=== PATIENT | female | born 1950 | race Caucasian/White ===

== ENCOUNTER 2017-06-15 20:25 | Emergency (ER) | payer MEDICARE, BC ==
[~2017-06-15] VITALS: Ht 167.6 cm; Wt 68.0 kg
[~2017-06-15 20:25] MED LIST: AFRIN NASAL SPRAY INH; AMAN100T PO; ATOR20TA PO; AZAT50TA18 PO; Acetaminophen PO; BISA5TAB13 PO; CLAR500T3 PO; CLON2TAB PO; Docusate Sodium PO; FLUD0.1T PO; LIDO35.4 TOP; PANT40TA2 PO; PRED1TAB PO; TRAZ-147 PO; ZOLP10TA2 PO
--- NOTE | 2017-06-15 21:49 | NUR ---
PICC LINE TO RUE. PLACED PATIENT IN SUPINE POSITION, STERILE TECHNIQUE USED WHEN PICC LINE WAS REMOVED. PICC LINE LENGTH WAS 40. PATIENT TOLERATED PROCEDURE WELL. PRESSURE DRESSING APPLIED. MO NOTIFIED. CXR ORDERED BY MONICA.
--- NOTE | 2017-06-15 21:50 | NUR ---
NO BLEEDING NOTED WHEN PICC LINE WAS PULLED, PRESSURE APPLIED FOR 10 MINUTES. NO BLEEDING NOTED. ASEPTIC TECHNIQUE USED DURING PROCEDURE.
--- NOTE | 2017-06-15 22:36 | NUR ---
Peripheral IV established per Dr. Levi verbal order.
--- NOTE | 2017-06-15 23:00 | NUR ---
Pt stable for discharge per Dr. Gallardo. Pt given ACI. Pt and family verbalized understanding of dc instructions. Pt ambulated out of er with steady gait.
--- NOTE | 2017-06-16 00:32 | NUR ---
Patient discharged to home in stable conditon. Written and verbal after care instructions given. Patient verbalizes understanding of instructions. PATIENT LEFT WITH STABLE GAIT, ACCOMPANIED BY .
[2017-06-16 00:36] VITALS: BP 133/76
== END 2017-06-16 00:36 | disposition home or self-care (01) ==
LOC: ER 20:25
DX: Z45.2 Encounter for adjustment and management of vascular access device (principal); I34.1 Nonrheumatic mitral (valve) prolapse; M35.2 Behcet's disease; Z90.49 Acquired absence of other specified parts of digestive tract; Z88.2 Allergy status to sulfonamides; K58.9 Irritable bowel syndrome, unspecified
CPT/HCPCS: 71010; A4663

== ENCOUNTER 2017-07-24 16:37 | Emergency (ER) | payer MEDICARE, BC ==
[~2017-07-24] VITALS: Ht 167.6 cm; Wt 68.0 kg
[2017-07-24] MEDS ORDERED: MONT5TAB14 PO (17:20)
[2017-07-24] MEDS ORDERED: DICY10CA59 PO (17:20)
--- NOTE | 2017-07-24 17:30 | NUR ---
Received ALOX4 with pt stating that she is having abd pain today and has a hx of appendicitis that as tx with abx and never removed. Pt states that she just wants to make sure that it is not her appendix. Pt placed on CR monitor with alarms set.
[2017-07-24] MEDS ORDERED: ONDANSETRON IV *ER 4 MG/2 ML VIAL IV ONE (19:00)
[2017-07-24] MEDS ORDERED: MORPHINE SULFATE 2 MG/1 ML DISP.SYRIN IV ONE (19:00)
[2017-07-24 19:12] LABS: CREATININE 0.8 mg/dL (0.6-1.3); POTASSIUM 4.1 mmol/L (3.5-5.1)
[2017-07-24 19:15] LABS: BASOPHILS % (AUTO) 0.6 % (0.0-2.0); EOSINOPHILS % (AUTO) 0.4 % (0.0-7.0); HEMATOCRIT 39.9 % (37-47); HEMOGLOBIN 13.1 G/DL (12.0-16.0); LYMPHOCYTES # (AUTO) 0.8 K/UL (0.8-4.8); LYMPHOCYTES % (AUTO) 12.3 % (20.5-51.5); MEAN CORPUSCULAR HEMOGLOBIN 29.1 UUG (27.0-31.0); MEAN CORPUSCULAR HGB CONC 33 g/dL (32.0-37.0); MEAN CORPUSCULAR VOLUME 88.8 FL (81.0-99.0); MONOCYTES # (AUTO) 0.3 K/UL (0.1-1.30); MONOCYTES % (AUTO) 4.5 % (0.0-11.0); NEUTROPHILS # (AUTO) 5.3 K/UL (1.8-8.9); NEUTROPHILS % (AUTO) 82.2 % (38.5-71.5); PLATELET COUNT (AUTO) 257 K/UL (150-450); RED BLOOD CELL COUNT(AUTO) 4.49 MIL/UL (4.2-5.4); WHITE BLOOD COUNT (AUTO) 6.4 K/UL (4.0-11.2)
[2017-07-24 19:19] LABS: BILIRUBIN,DIRECT 0.1 mg/dL (0.0-0.2); BILIRUBIN,TOTAL 0.2 mg/dL (0.2-1.0); TOTAL PROTEIN, SERUM 7.7 g/dL (6.4-8.2)
[2017-07-24 20:14] LABS: *BILIRUBIN,URIN NEGATIVE (NEGATIVE); *BLOOD, URINE 1+ (NEGATIVE); *CLARITY,URINE CLEAR (CLEAR); *COLOR,URINE LIGHT YELLOW (YELLOW); *KETONES,URINE NEGATIVE (NEGATIVE); *PROTEIN,URINE NEGATIVE (NEGATIVE); *UROBILINOGEN,URINE 0.2 E.U./dl (NORMAL); LEUKOCYTE ESTERASE ,URINE TRACE (NEGATIVE); NITRITE, URINE NEGATIVE (NEGATIVE); UGLUCOSE NEGATIVE (NEGATIVE)
[2017-07-24 20:33] LABS: SQUAMOUS EPITHELIAL CELL,UR FEW /HPF (NONE SEEN)
--- NOTE | 2017-07-24 21:16 | NUR ---
Patient discharged to home in stable conditon. Written and verbal after care instructions given. Patient and her verbalize understanding of instructions.
[2017-07-24 21:17] VITALS: BP 128/72
== END 2017-07-24 21:18 | disposition home or self-care (01) ==
LOC: ER 16:37
DX: R31.9 Hematuria, unspecified (principal); M35.2 Behcet's disease; K58.9 Irritable bowel syndrome, unspecified; Z90.49 Acquired absence of other specified parts of digestive tract
CPT/HCPCS: 36415; 83690; 85025; A4663; J7030

== ENCOUNTER 2019-08-17 16:08 | Emergency (ER) | payer BC, MEDICARE ==
[~2019-08-17] VITALS: Ht 167.6 cm; Wt 71.7 kg
[~2019-08-17 16:08] MED LIST changes: +AMLO2.5T4 PO; -ATOR20TA PO; +AZAT50TA PO; -AZAT50TA18 PO; -BISA5TAB13 PO; +CEFT1VIA15 IV; -CLAR500T3 PO; +DICY10CA59 PO; +GABA-532 PO; +HYDR-3326 PO; +MONT5TAB14 PO; +OSEL75CA PO; -PANT40TA2 PO; +ROSU10TA2 PO; -TRAZ-147 PO; +TRAZ-214 PO; +ZOLP5TAB2 PO; +[UNRECOGNIZED DRUG - OTHER] PO
[2019-08-17] MEDS ORDERED: IV NORMAL SALINE 1000 ML BAG IV ONE (16:30)
[2019-08-17 16:41] LABS: BASOPHILS % (AUTO) 0.8 % (0.0-2.0); EOSINOPHILS # (AUTO) 0.3 K/uL (0.0-0.7); EOSINOPHILS % (AUTO) 4.2 % (0.0-7.0); HEMATOCRIT 39.7 % (31.2-41.9); HEMOGLOBIN 13.2 g/dL (10.9-14.3); LYMPHOCYTES % (AUTO) 17.1 % (20.5-51.5); MEAN CORPUSCULAR HEMOGLOBIN 29.4 uug (24.7-32.8); MEAN CORPUSCULAR HGB CONC 33 g/dL (32.3-35.6); MEAN CORPUSCULAR VOLUME 88.4 fL (75.5-95.3); MONOCYTES # (AUTO) 0.5 K/uL (2.0-10.0); MONOCYTES % (AUTO) 8.4 % (0.0-11.0); NEUTROPHILS # (AUTO) 4.2 K/uL (1.8-8.9); NEUTROPHILS % (AUTO) 69.5 % (38.5-71.5); PLATELET COUNT (AUTO) 275 K/uL (179-408); RED BLOOD CELL COUNT(AUTO) 4.49 MIL/uL (3.63-4.92)
[2019-08-17 16:53] LABS: CREATININE 0.8 mg/dL (0.6-1.3); POTASSIUM 3.8 mmol/L (3.5-5.1)
[2019-08-17 16:59] LABS: BILIRUBIN,DIRECT 0.1 mg/dL (0.0-0.2); BILIRUBIN,TOTAL 0.3 mg/dL (0.2-1.0); TOTAL PROTEIN, SERUM 7.8 g/dL (6.4-8.2)
[2019-08-17 17:15] LABS: *BILIRUBIN,URIN NEGATIVE (NEGATIVE); *CLARITY,URINE CLEAR (CLEAR); *COLOR,URINE YELLOW (YELLOW); *KETONES,URINE NEGATIVE (NEGATIVE); *UROBILINOGEN,URINE 0.2 E.U./dl (NORMAL); LEUKOCYTE ESTERASE ,URINE 1+ (NEGATIVE); NITRITE, URINE NEGATIVE (NEGATIVE); UGLUCOSE NEGATIVE (NEGATIVE)
[2019-08-17 17:26] LABS: *BLOOD, URINE NEGATIVE (NEGATIVE)
[2019-08-17 17:28] LABS: BACTERIA,URINE NONE SEEN /HPF (NONE SEEN); RBC,URINE 0-3 /HPF (0-3); WBC,URINE 0-3 /HPF (0-3)
[2019-08-17 17:29] LABS: MUCUS,URINE FEW /LPF (0-FEW); SQUAMOUS EPITHELIAL CELL,UR FEW /HPF (NONE SEEN)
[2019-08-17 19:40] VITALS: BP 116/75
== END 2019-08-17 19:40 | disposition home or self-care (01) ==
LOC: ER 16:08
DX: R11.10 Vomiting, unspecified (principal); R19.7 Diarrhea, unspecified; Z88.2 Allergy status to sulfonamides; Z88.8 Allergy status to other drugs, medicaments and biological substances; Z79.899 Other long term (current) drug therapy; Z79.2 Long term (current) use of antibiotics
CPT/HCPCS: 36415; 83690; 85025; 87086; A4663; J7030

== ENCOUNTER 2019-08-25 06:18 | Emergency (ER) | payer BC ==
[~2019-08-25] VITALS: Ht 170.2 cm; Wt 75.7 kg
--- NOTE | 2019-08-25 06:44 | NUR ---
PT IS SEATED ON GURNEY, PT IS ABLE TO SPEAK CLEAR AND COMPLETE SENTENCES DENIES CHANGES IN LOC DENIES NVD/FEVERS/CHILLS/RESPIRATORY DISTRESS MD AT BEDSIDE FOR HX AND PHYSICAL PT LOOKING FOR MONITORED ACCORDINGLY [id number] UP BED AT LOWEST POSITION
--- NOTE | 2019-08-25 07:01 | NUR ---
HAND OFF AND SBAR GIVEN TO INCOMING DAY SHIFT RN YANDY)
--- NOTE | 2019-08-25 07:58 | NUR ---
PT WAS D/C'd TO HOME. D/C INSTRUCTIONS GIVEN TO THE PT AND TO HER .
[2019-08-25 07:59] VITALS: BP 146/91
== END 2019-08-25 08:00 | disposition home or self-care (01) ==
LOC: ER 06:22
DX: R53.1 Weakness (principal); M25.511 Pain in right shoulder; M54.5 Low back pain; M25.551 Pain in right hip; Z88.2 Allergy status to sulfonamides; Z88.8 Allergy status to other drugs, medicaments and biological substances; Z88.7 Allergy status to serum and vaccine; Z79.899 Other long term (current) drug therapy; Z79.2 Long term (current) use of antibiotics; W01.0XXA Fall on same level from slipping, tripping and stumbling without subsequent striking against object, initial encounter; Y93.89 Activity, other specified; Y92.89 Other specified places as the place of occurrence of the external cause; Y99.8 Other external cause status
CPT/HCPCS: 72100; 73502; A4663

== ENCOUNTER 2020-08-06 03:20 | Emergency (ER) | payer BC ==
[~2020-08-06] VITALS: Ht 167.6 cm; Wt 68.0 kg
[~2020-08-06 03:20] MED LIST changes: -TRAZ-214 PO; +TRAZ-257 PO
--- NOTE | 2020-08-06 03:45 | NUR ---
Dr. Velazquez at bedside for MSE
--- NOTE | 2020-08-06 03:47 | NUR ---
Patient BIB via wheelchair. c/o loose bowel movement. patient A&O x4. patient also states she is having abdominal pain. ERMD aware. offered analgesics but patient declined at this time. Patient constantly on the phone with stating that staff is not doing anything when nursing staff at bedside to accomodate her needs. patient denies any CP / N / V at this time. Speech is clear and able to make needs known / follow commands. Breathing even and unlabored. denies any SOB.
[2020-08-06] MEDS ORDERED: MISCELLANEOUS MED XX ONE (04:00)
[2020-08-06] MEDS ORDERED: KETOROLAC TROMETHAMINE 15 MG INJ IVP ONE (04:00)
[2020-08-06] MEDS ORDERED: HYDROMORPHONE 1 MG/1 ML DISP.SYRIN IV ONE (04:00)
[2020-08-06] MEDS ORDERED: KETOROLAC TROMETHAMINE 15 MG INJ ONE (04:02)
[2020-08-06] MEDS ORDERED: HYDROMORPHONE 1 MG/1 ML DISP.SYRIN ONE (04:02)
[2020-08-06] MEDS ORDERED: ACETAMINOPHEN ES 500 MG TABLET ONE (04:14)
[2020-08-06] MEDS ORDERED: ACETAMINOPHEN ES 500 MG TABLET PO ONE (04:15)
[2020-08-06 05:11] LABS: BASOPHILS % (AUTO) 0.2 % (0.0-2.0); EOSINOPHILS # (AUTO) 0.1 K/uL (0.0-0.7); EOSINOPHILS % (AUTO) 0.9 % (0.0-7.0); HEMATOCRIT 37.1 % (31.2-41.9); HEMOGLOBIN 12.6 g/dL (10.9-14.3); LYMPHOCYTES # (AUTO) 0.7 K/uL (20.0-40.0); LYMPHOCYTES % (AUTO) 6.9 % (20.5-51.5); MEAN CORPUSCULAR HEMOGLOBIN 30.6 uug (24.7-32.8); MEAN CORPUSCULAR HGB CONC 34 g/dL (32.3-35.6); MEAN CORPUSCULAR VOLUME 89.7 fL (75.5-95.3); MONOCYTES # (AUTO) 0.3 K/uL (2.0-10.0); PLATELET COUNT (AUTO) 219 K/uL (179-408); RED BLOOD CELL COUNT(AUTO) 4.13 MIL/uL (3.63-4.92); WHITE BLOOD COUNT (AUTO) 10.1 K/uL (3.8-11.8)
[2020-08-06 05:16] LABS: POTASSIUM 3.6 mmol/L (3.5-5.1)
--- NOTE | 2020-08-06 05:25 | NUR ---
Pt out of ER for CT.
[2020-08-06 05:29] LABS: BILIRUBIN,DIRECT 0.1 mg/dL (0.0-0.2); BILIRUBIN,TOTAL 0.4 mg/dL (0.2-1.0); TOTAL PROTEIN, SERUM 7.4 g/dL (6.4-8.2)
--- NOTE | 2020-08-06 05:45 | NUR ---
Pt back to ER from CT.
--- NOTE | 2020-08-06 07:09 | NUR ---
Patient discharged to home in stable condition. Written and verbal after care instructions given. Patient verbalizes understanding of instructions. Stressed follow up or return to ER for worsening s/s. Patient out of ER via wheelchair, VSS, no acute signs of distress, all belongings taken, to be driven home by .
[2020-08-06 07:13] VITALS: BP 136/58
== END 2020-08-06 07:14 | disposition home or self-care (01) ==
LOC: ER 03:20
DX: R19.7 Diarrhea, unspecified (principal); Z20.828 Contact with and (suspected) exposure to other viral communicable diseases; R00.0 Tachycardia, unspecified; R68.83 Chills (without fever); Z88.2 Allergy status to sulfonamides; Z88.8 Allergy status to other drugs, medicaments and biological substances; Z91.041 Radiographic dye allergy status; M35.2 Behcet's disease; Z79.52 Long term (current) use of systemic steroids; J32.9 Chronic sinusitis, unspecified; J42 Unspecified chronic bronchitis; Z79.899 Other long term (current) drug therapy
CPT/HCPCS: 36415; 71045; 74176; 80048; 80076; 83880; 84484; 85025; 85730; 87040 ×2; 87426; 93005; 99285; U0003; 70030-TC; A4663; A9150; J1170; J1885

== ENCOUNTER 2025-03-21 22:02 | Emergency (ER) | payer BC ==
[~2025-03-21] VITALS: Ht 167.6 cm; Wt 59.0 kg
[~2025-03-21 22:02] MED LIST changes: -ZOLP5TAB2 PO
[2025-03-21] MEDS ORDERED: CYCL10TA9 PO (22:32)
[2025-03-21] MEDS ORDERED: CLON1TAB12 PO (22:50)
[2025-03-21] MEDS ORDERED: EVOL140P3 SQ (22:50)
[2025-03-21] MEDS ORDERED: ZOLP12.52 PO (22:54)
[2025-03-22 00:08] VITALS: BP 141/74; O2SAT 98
== END 2025-03-22 00:08 | disposition home or self-care (01) ==
LOC: ER 22:29
DX: M79.661 Pain in right lower leg (principal); M79.662 Pain in left lower leg; R22.43 Localized swelling, mass and lump, lower limb, bilateral; Z79.624 Long term (current) use of inhibitors of nucleotide synthesis; Z79.631 Long term (current) use of antimetabolite agent; Z79.899 Other long term (current) drug therapy; Z88.2 Allergy status to sulfonamides; Z88.8 Allergy status to other drugs, medicaments and biological substances; Z90.49 Acquired absence of other specified parts of digestive tract; Z91.041 Radiographic dye allergy status; Z86.69 Personal history of other diseases of the nervous system and sense organs; Z86.79 Personal history of other diseases of the circulatory system; Z87.09 Personal history of other diseases of the respiratory system; Z87.19 Personal history of other diseases of the digestive system; Z87.39 Personal history of other diseases of the musculoskeletal system and connective tissue
CPT/HCPCS: A4606; A4663

== ENCOUNTER 2025-05-26 16:13 | Emergency (ER) | payer BC ==
[~2025-05-26] VITALS: Ht 167.6 cm; Wt 59.0 kg
[~2025-05-26 16:13] MED LIST changes: -AFRIN NASAL SPRAY INH; +CLON1TAB12 PO; +CYCL10TA9 PO; +EVOL140P3 SQ; +ZOLP12.52 PO
[2025-05-26 16:32] VITALS: BP 108/66
[2025-05-26 18:33] LABS: PLATELET COUNT (AUTO) 273 K/uL (179-408); RED BLOOD CELL COUNT(AUTO) 4.27 MIL/uL (3.63-4.92); RED CELL DISTRIBUTION WIDTH 12.8 % (12.3-17.7); WHITE BLOOD COUNT (AUTO) 5.9 K/uL (3.8-11.8)
[2025-05-26 18:38] LABS: *BILIRUBIN,URIN NEGATIVE (NEGATIVE); *CLARITY,URINE CLEAR (CLEAR); *COLOR,URINE YELLOW (YELLOW); *KETONES,URINE NEGATIVE (NEGATIVE); *PROTEIN,URINE NEGATIVE (NEGATIVE); *UROBILINOGEN,URINE 0.2 E.U./dl (NORMAL); LEUKOCYTE ESTERASE ,URINE NEGATIVE (NEGATIVE); NITRITE, URINE NEGATIVE (NEGATIVE); UGLUCOSE NEGATIVE (NEGATIVE)
[2025-05-26 18:39] LABS: CREATININE 0.7 mg/dL (0.6-1.3); SODIUM SERUM 140 mmol/L (136-145); UREA NITROGEN, BLOOD 10 mg/dL (7-18)
[2025-05-26 18:40] LABS: *BLOOD, URINE TRACE (NEGATIVE)
[2025-05-26 18:44] LABS: ASPARTATE AMINOTRANSFERASE 15 U/L (15-37); TOTAL PROTEIN, SERUM 7.6 g/dL (6.4-8.2)
[2025-05-26] MEDS ORDERED: IV NORMAL SALINE 250 ML IV ONE (18:58)
[2025-05-26] MEDS ORDERED: IOHEXOL 300MG/ML 100 ML INFUS..BTL ONE (18:58)
[2025-05-26] MEDS ORDERED: SWABABLE VALVE TRANSFER SET EA MC ONE (18:58)
[2025-05-26] MEDS ORDERED: HYDR-3972 PO (20:37)
[2025-05-26 20:50] VITALS: BP 110/69; TEMP 97.8; O2SAT 98
== END 2025-05-26 21:00 | disposition home or self-care (01) ==
LOC: ER 16:23
DX: R10.10 Upper abdominal pain, unspecified (principal); R10.31 Right lower quadrant pain; R07.9 Chest pain, unspecified; E78.5 Hyperlipidemia, unspecified; K58.9 Irritable bowel syndrome, unspecified; Z79.624 Long term (current) use of inhibitors of nucleotide synthesis; Z79.631 Long term (current) use of antimetabolite agent; Z79.899 Other long term (current) drug therapy; Z88.2 Allergy status to sulfonamides; Z88.8 Allergy status to other drugs, medicaments and biological substances; Z90.49 Acquired absence of other specified parts of digestive tract; Z86.69 Personal history of other diseases of the nervous system and sense organs; Z86.79 Personal history of other diseases of the circulatory system; Z87.09 Personal history of other diseases of the respiratory system; Z87.448 Personal history of other diseases of urinary system; Z87.42 Personal history of other diseases of the female genital tract; Z87.39 Personal history of other diseases of the musculoskeletal system and connective tissue
CPT/HCPCS: 99285; 74177; 71045; 80076; 80048; 81001; 83690; 85025; 85730; 87040 ×2; 87086; 84484; 36415; 83605; Q9967; A4606; A4663

== ENCOUNTER 2025-08-14 20:45 | Emergency (ER) | payer BC ==
[~2025-08-14] VITALS: Ht 167.6 cm; Wt 59.0 kg
[~2025-08-14 20:45] MED LIST changes: +HYDR-3972 PO
[2025-08-14 21:35] LABS: PLATELET COUNT (AUTO) 232 K/uL (179-408); RED BLOOD CELL COUNT(AUTO) 3.90 MIL/uL (3.63-4.92); RED CELL DISTRIBUTION WIDTH 13.6 % (12.3-17.7); WHITE BLOOD COUNT (AUTO) 5.2 K/uL (3.8-11.8)
[2025-08-14 21:43] LABS: CREATININE 0.6 mg/dL (0.6-1.3); SODIUM SERUM 135 mmol/L (136-145); UREA NITROGEN, BLOOD 14 mg/dL (7-18)
[2025-08-14 21:48] LABS: ASPARTATE AMINOTRANSFERASE 14 U/L (15-37); TOTAL PROTEIN, SERUM 6.8 g/dL (6.4-8.2)
[2025-08-14 22:00] VITALS: BP 154/83
[2025-08-14 22:57] VITALS: BP 154/83; O2SAT 99
== END 2025-08-14 22:57 | disposition home or self-care (01) ==
LOC: ER 20:47
DX: R60.0 Localized edema (principal); R07.89 Other chest pain; E78.5 Hyperlipidemia, unspecified; I10 Essential (primary) hypertension; I49.8 Other specified cardiac arrhythmias; R06.02 Shortness of breath; Z79.624 Long term (current) use of inhibitors of nucleotide synthesis; Z79.631 Long term (current) use of antimetabolite agent; Z79.899 Other long term (current) drug therapy; Z88.2 Allergy status to sulfonamides; Z88.8 Allergy status to other drugs, medicaments and biological substances; Z90.49 Acquired absence of other specified parts of digestive tract
CPT/HCPCS: 36415; 71045; 84443; 84484; 85025; 85730; A4606; A4663